=== PATIENT | female | born 1990 | race Two or more races ===

== ENCOUNTER 2016-12-18 12:17 | Emergency (ER) | payer MEDICAID ==
[~2016-12-18] VITALS: Ht 162.6 cm; Wt 80.7 kg
[2016-12-18 12:58] LABS: BASOPHIL % 1.9 % (0-2); PLATELET COUNT 192 x10^3mcL (130-400)
[2016-12-18 14:35] VITALS: BP 103/60
== END 2016-12-18 14:35 | disposition home or self-care (01) ==
LOC: ED 12:17
PROVIDERS: Emergency Medicine
DX: O20.0 Threatened abortion (principal); Z3A.01 Less than 8 weeks gestation of pregnancy
CPT/HCPCS: 36415; Q0092

== ENCOUNTER 2017-01-12 15:07 | Emergency (ER) | payer MEDICAID ==
[2017-01-12 17:13] VITALS: BP 103/61
== END 2017-01-12 17:13 | disposition home or self-care (01) ==
LOC: ED 15:07
DX: O23.41 Unspecified infection of urinary tract in pregnancy, first trimester (principal); Z3A.00 Weeks of gestation of pregnancy not specified
CPT/HCPCS: J0696; Q0162